=== PATIENT | female | born 2000 | race Caucasian/White ===

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

== ENCOUNTER 2021-02-05 02:46 | Emergency (ER) | payer OTHER ==
[~2021-02-05 02:46] MED LIST: BACTRIM DS TAB1 EACH PO; PYRIDIUM200 MG PO
[2021-02-05] MEDS ORDERED: HYDROCODON-ACE1 EAC2 PO (04:02)
== END 2021-02-05 04:15 | disposition home or self-care (01) ==
LOC: FER 02:46
DX: O03.4 Incomplete spontaneous abortion without complication (principal); F17.210 Nicotine dependence, cigarettes, uncomplicated
CPT/HCPCS: J2270; J2405